=== PATIENT | male | born 1985 | race Two or more races ===

== ENCOUNTER 2016-12-11 16:16 | Emergency (ER) | payer OTHER ==
[~2016-12-11] VITALS: Ht 170.2 cm; Wt 89.7 kg
[2016-12-11 17:12] LABS: HEMOGLOBIN 16.4 g/dL (13.7-18.0)
[2016-12-11 17:22] LABS: ASPARTATE AMINO TRANSFERASE 29 U/L (15-37); BLOOD UREA NITROGEN 13 mg/dL (7-18)
[2016-12-11] MEDS ORDERED: SODIUM CHLORIDE 0.9% 1,000ML IVBOLUS ONE (17:30)
[2016-12-11] MEDS ORDERED: KETOROLAC 30 MG/1 ML IVPush ONE (17:30)
[2016-12-11] MEDS ORDERED: ONDANSETRON 2MG/ML, 2ML IVPush ONE (17:30)
[2016-12-11] MEDS ORDERED: SODIUM CHLORIDE FLUSH 10ML SYR IVF ONE (17:30)
[2016-12-11] MEDS ORDERED: KETOROLAC 30 MG/1 ML ONE (17:35)
[2016-12-11] MEDS ORDERED: ONDANSETRON 2MG/ML, 2ML ONE (17:35)
[2016-12-11 18:35] VITALS: BP 117/68
== END 2016-12-11 19:31 | disposition home or self-care (01) ==
LOC: ED 17:16
DX: N20.2 Calculus of kidney with calculus of ureter (principal)
CPT/HCPCS: 36415; 74176; 80053; 81003; 85025; 96361; 96374; 96375; 99285; J1885; J2405; J7030